=== PATIENT | male | born 1975 | race Caucasian/White ===

== ENCOUNTER → 2016-08-26 | Outpatient (CLI) | payer BC ==
[~2016-08-26] MED LIST: ATOR-22 PO; CYAN10005 PO; GLIM1TAB2 PO; LEVO150T9 PO; LIRA18IN SQ; LISI-729 PO; METF1TAB53 PO; MULT-506 PO; NAPR1TAB9 PO; OMEG10007 PO; USTE45IN SQ
[2016-08-26 11:46] LABS: ESTIMATED AVERAGE GLUCOSE 126 mg/dl; HA1C FLAG Normal (Normal)
[2016-08-26 12:04] LABS: RATIO 4.6 mcg/mg (0-30.0)
[2016-08-26 13:13] LABS: ALT/SGPT 81 U/L (12-78); AST/SGOT 34 U/L (15-37); BLOOD UREA NITROGEN 11 mg/dl (7-18); BUN/CREATININE RATIO 11.9 (10-20); CALCIUM 8.8 mg/dl (8.5-10.1); CARBON DIOXIDE 26 mmol/L (21-32); CHLORIDE 105 mmol/L (98-107); CREATININE 0.94 mg/dl (0.60-1.40); GLUCOSE 113 mg/dl (70-99); POTASSIUM 4.3 mmol/L (3.5-5.1); SODIUM 141 mmol/L (136-145)
[2016-08-26 13:24] LABS: ALB/GLOB RATIO 1.2 (0.9-2); ALKALINE PHOSPHATASE 97 U/L (45-117)
== END | disposition home or self-care (01) ==
LOC: C.LABBC 09:14
PROVIDERS: ATTEND Internal Medicine Endocrinology, Diabetes & Metabolism
DX: K76.0 Fatty (change of) liver, not elsewhere classified (principal)

== ENCOUNTER → 2016-11-25 | Outpatient (CLI) | payer BC ==
[2016-11-25 10:55] LABS: ALT/SGPT 46 U/L (12-78); BLOOD UREA NITROGEN 13 mg/dl (7-18); BUN/CREATININE RATIO 15.5 (10-20); CARBON DIOXIDE 26 mmol/L (21-32); CHLORIDE 107 mmol/L (98-107); CHOLESTEROL 119 mg/dl (0-200); CREATININE 0.86 mg/dl (0.60-1.40); GLUCOSE 116 mg/dl (70-99); POTASSIUM 4.5 mmol/L (3.5-5.1); SODIUM 141 mmol/L (136-145); TRIGLYCERIDES 143 mg/dl (0-150); VERY LOW DENSITY LIPOPROT CALC 29 mg/dl
[2016-11-25 10:59] LABS: ALB/GLOB RATIO 1.1 (0.9-2); ALKALINE PHOSPHATASE 99 U/L (45-117); AST/SGOT 22 U/L (15-37); CALCIUM 9.1 mg/dl (8.5-10.1); CHOLESTEROL/HDL RATIO 3.5; ESTIMATED AVERAGE GLUCOSE 123 mg/dl; HA1C FLAG Normal (Normal); HDL CHOLESTEROL 34 mg/dl; LDL CHOLESTEROL CALCULATED 56 mg/dl
== END | disposition home or self-care (01) ==
LOC: C.LABBC 07:02
PROVIDERS: ATTEND Physician Assistant
DX: E11.65 Type 2 diabetes mellitus with hyperglycemia (principal); I10 Essential (primary) hypertension

== ENCOUNTER → 2017-05-09 | Outpatient (CLI) | payer BC ==
[~2017-05-09] MED LIST changes: -GLIM1TAB2 PO
[2017-05-09 11:41] LABS: ESTIMATED AVERAGE GLUCOSE 123 mg/dl; HA1C FLAG Normal (Normal)
[2017-05-09 12:40] LABS: THYROID STIMULATING HORMONE 3.22 uIu/ml (0.300-4.500)
== END | disposition home or self-care (01) ==
LOC: C.LABBC 07:14
PROVIDERS: ATTEND Physician Assistant
DX: E03.9 Hypothyroidism, unspecified (principal); E11.9 Type 2 diabetes mellitus without complications

== ENCOUNTER → 2017-10-31 | Outpatient (CLI) | payer BC ==
[2017-10-31 11:28] LABS: ALT/SGPT 47 U/L (12-78); AST/SGOT 26 U/L (15-37); BLOOD UREA NITROGEN 16 mg/dl (7-18); CALCIUM 9.2 mg/dl (8.5-10.1); CARBON DIOXIDE 26 mmol/L (21-32); GLUCOSE 117 mg/dl (70-99); POTASSIUM 4.4 mmol/L (3.5-5.1); SODIUM 136 mmol/L (136-145)
[2017-10-31 11:38] LABS: ALKALINE PHOSPHATASE 82 U/L (45-117); TOTAL PROTEIN 7.8 gm/dl (6.4-8.2)
== END | disposition home or self-care (01) ==
LOC: C.LABBC 06:53
PROVIDERS: ATTEND Family Medicine
DX: E11.9 Type 2 diabetes mellitus without complications (principal); E03.9 Hypothyroidism, unspecified

== ENCOUNTER → 2018-02-13 | Outpatient (CLI) | payer BC ==
[~2018-02-13] MED LIST changes: +CYCL10TA6 PO; +MELO7.5T5 PO
--- NOTE | 2018-02-13 14:10 | DIAGNOSTIC IMAGING REPORT ---
R SHOULDER MIN 2 VIEWS ROUTINE CLINICAL HISTORY: R SHOULDER PAIN pain COMPARISON: None. DISCUSSION: Very small osteophyte projecting from the lateral aspect of the acromion. Glenohumeral joint as well as acromioclavicular joint specifically are otherwise unremarkable. A slight Hill-Sachs type deformity posterior lateral aspect right lateral humeral head. No evidence for acute fracture or dislocation. There is no evidence for soft tissue swelling. IMPRESSION: Minimal degenerative osteophytic change. No acute bony abnormality The above report was generated using voice recognition software. It may contain grammatical, syntax or spelling errors. Electronically signed by: Sergio Barry M.D. 02/13/2018 2:08 PM Dictated Date/Time: 02/13/2018 2:08 PM
== END | disposition home or self-care (01) ==
LOC: C.RADBC 13:55
PROVIDERS: ATTEND Physician Assistant Medical
DX: M25.511 Pain in right shoulder (principal)

== ENCOUNTER → 2018-02-23 | Outpatient (CLI) | payer BC ==
[2018-02-23 14:55] LABS: BASO % 0.3 %; BASO ABS # 0.03 K/uL (0-0.2); EOS % 1.7 %; EOS ABS # 0.16 K/uL (0-0.5); HEMATOCRIT 42.7 % (42-52); HEMOGLOBIN 14.6 g/dL (14.0-18.0); IG# 0.02 K/uL (0.00-0.02); LYMPH % 36.7 %; LYMPH ABS # 3.38 K/uL (1.2-3.4); MEAN CELL VOLUME 92.2 fL (80-100); MEAN CORPUSCULAR HEMOGLOBIN 31.5 pg (25-34); MEAN PLATELET VOLUME 9.7 fL (7.4-10.4); MONO % 8.6 %; MONO ABS # 0.79 K/uL (0.11-0.59); NEUT % 52.5 %; NEUT ABS # 4.82 K/uL (1.4-6.5); PLATELET COUNT 224 K/uL (130-400); RED CELL DISTRIBUTION WIDTH CV 13.4 % (11.5-14.5); RED CELL DISTRIBUTION WIDTH SD 45.3 fL (36.4-46.3)
[2018-02-23 15:08] LABS: MEAN CORPUSCULAR HGB CONC 34.2 g/dl (32-36)
--- NOTE | 2018-03-04 09:32 | CODING QUERY NO DIAGNOSIS ---
1975 Valid Physician Order Needed A valid physician order must be submitted in order to properly bill for the service(s) provided, including date of service(s), valid diagnosis, and physician signature. If these tests are done on a recurring basis the original physican order must be submitted in order to code and bill for the service(s) provided. Please fax us the original, signed physician order so that we may expedite billing to [phone] DOS 02/23/18 * CBC WITH AUTO DIFF Thank you SISI Hamilton, [facility] Health Information Management
--- NOTE | 2018-03-20 08:40 | CODING QUERY NO DIAGNOSIS ---
1973 TREATMENT RENDERED WITHOUT A DIAGNOSIS To promote full compliance with coding requirements relating to patient care, physician participation is requested in all cases of community development planner uncertainty. Please assist us with providing a diagnosis/symptom for the test(s) below: A diagnosis/symptom was not documented on your Order. A valid diagnosis/symptom is required to bill all insurances. Please remember that we are unable to code a diagnosis of rule out, probable, possible, questionable, or suspected. Tests that require a diagnosis: DOS 02/23/18 CBC W/ AUTO DIFF DIAGNOSIS: Provider Signature: Date: Thank you Rae Tawnycem [employer] Information Management Once completed, please kindly fax back to [phone] For questions please call [phone]
== END | disposition home or self-care (01) ==
LOC: C.LAB 14:25
PROVIDERS: ATTEND Physician Assistant Medical
DX: Z01.89 Encounter for other specified special examinations (principal)